=== PATIENT | male | born 1965 | race African-American/Black ===

== ENCOUNTER 2021-04-02 19:35 | Emergency (ER) | payer OTHER ==
[2021-04-02 19:39] VITALS: BP 114/73
--- NOTE | 2021-04-03 06:40 | Emergency Department Report ---
Blank Doc - Documentation Documentation: This is a 55-year-old male that presents with a syncopal episode that occurred last night. Patient has past medical history of cardiac. Physical exam: Exam does not show any stroke like symptoms. Neuro exam is unremarkable. 1- This is a initial triage assessment/medical screening only. Full assessment and work-up will be completed once the patient is in proper hospital gown, ED bed and in a private room setting. This initial assessment/diagnostic orders/clinical plan/ treatment(s) is/are subject to change based on pt's health status, clinical progression and re-assessment by fellow clinical providers in the ED. Further treatment and workup at subsequent clinical providers discretion. Patient/guardians urged not to elope from ED as their condition may be serious if not clinically assessed and managed. 2-cardiac work-up The patient was evaluated in the emergency department for symptoms described in the history of present illness. He/she was evaluated in the context of the global COVID-19 pandemic, which necessitated consideration that the patient might be at risk for infection with the virus that causes COVID-19. Institutional protocols and algorithms that pertain to the evaluation of patients at risk for COVID-19 are in a state of rapid change based on information released by regulatory bodies including the CDC and federal and state organizations. These policies and algorithms were followed during the patient's care in the emergency department. Please note that these policies, procedures and recommendations changed on a rapid basis.
--- NOTE | 2021-04-03 07:05 | XRay Report ---
CHEST 2 VIEWS INDICATION / CLINICAL INFORMATION: Chest Pain. COMPARISON: None available. FINDINGS: SUPPORT DEVICES: None. HEART / MEDIASTINUM: No significant abnormality. LUNGS / PLEURA: No significant pulmonary or pleural abnormality. No pneumothorax. ADDITIONAL FINDINGS: No significant additional findings. IMPRESSION: 1. No acute findings. Signer Name: Luis Alberto Vidales DO Signed: 04/03/2021 7:01 AM Workstation Name: [id number]
[2021-04-03 08:15] LABS: Basophils % (Auto) 0.8 % (0.0-1.8); Eosinophils # (Auto) 0.1 K/mm3 (0.0-0.4); Eosinophils % (Auto) 2.2 % (0.0-4.3); Hematocrit 44.8 % (35.5-45.6); Hemoglobin 14.3 gm/dl (11.8-15.2); Lymphocytes # (Auto) 1.8 K/mm3 (1.2-5.4); Lymphocytes % (Auto) 32.7 % (13.4-35.0); Mean Corpuscular HGB Conc 32 % (32-34); Mean Corpuscular Volume 83 fl (84-94); Monocytes # (Auto) 0.5 K/mm3 (0.0-0.8); Monocytes % (Auto) 9.1 % (0.0-7.3); Platelet Count 192 K/mm3 (140-440); Red Cell Distribution Width 17.8 % (13.2-15.2)
[2021-04-03 08:43] LABS: Alanine Aminotransferase 11 units/L (7-56); Albumin 4.3 g/dL (3.9-5); BUN/Creatinine Ratio 11; Blood Urea Nitrogen 26 mg/dL (9-20); Calcium 9.1 mg/dL (8.4-10.2); Hemolysis Index 6
[2021-04-03 08:45] LABS: INR 0.89 (0.87-1.13)
--- NOTE | 2021-04-03 08:58 | Emergency Department Report ---
ED Syncope HPI - General Chief Complaint: Syncope Stated Complaint: SYNCOPE, MED CLEARENCE FOR [place] Time Seen by Provider: 04/03/21 06:28 Source: patient Exam Limitations: no limitations - History of Present Illness Initial Comments: Chief complaint: "My blood pressure was low. I did not eat." HPI: Is a 55-year-old male with history of mitral valve repair, chronic kidney disease, hypertension who presents with syncopal episode. He was referred to [facility] for depression and suicidality. He was discharged on a voluntary basis. He takes Eliquis for mitral valve issue. Prior to being discharged from [facility] emergency department he received medication for elevated blood pressure. He drove his personal vehicle. When he arrived to [facility] his blood pressure had dropped to 70. He had brief syncopal episode. He also stated that he had not eaten food over the past day. He denies any symptoms at this time. He denies palpitations, chest pain, shortness of breath, leg pain. Denies headache. Mitral valve repair occurred in September 2017 Timing/Prior Episodes: single episode today Precipitating Factors: Positive: other (low blood pressure) Loss of Consciousness: brief (seconds) Current Symptoms: back to normal ED Review of Systems ROS: Stated complaint: SYNCOPE, MED CLEARENCE FOR [place] Other details as noted in HPI Comment: All other systems reviewed and negative Constitutional: denies: chills, fever, malaise Respiratory: denies: cough, shortness of breath Cardiovascular: denies: chest pain Gastrointestinal: denies: abdominal pain Skin: denies: rash, lesions Neurological: denies: headache, weakness ED Past Medical Hx - Past Medical History Previous Medical History?: Yes Hx Hypertension: Yes Hx Renal Disease: Yes Additional medical history: mitral valve disease - Surgical History Past Surgical History?: Yes Additional Surgical History: cardiac surgery mitral valve repair September 2017 - Family History Family history: no significant - Social History Smoking Status: Former Smoker Substance Use Type: None ED Physical Exam - General Limitations: No Limitations General appearance: alert, in no apparent distress - Head Head exam: Present: atraumatic, normocephalic - Eye Eye exam: Present: normal appearance - ENT ENT exam: Present: mucous membranes moist - Neck Neck exam: Present: normal inspection - Respiratory Respiratory exam: Present: normal lung sounds bilaterally. Absent: respiratory distress, wheezes, rales, rhonchi, stridor - Cardiovascular Cardiovascular Exam: Present: regular rate, normal rhythm, normal heart sounds. Absent: systolic murmur, diastolic murmur, rubs, gallop - GI/Abdominal GI/Abdominal exam: Present: soft, normal bowel sounds - Rectal Rectal exam: Present: deferred - Extremities Exam Extremities exam: Present: normal inspection - Back Exam Back exam: Present: normal inspection - Neurological Exam Neurological exam: Present: alert, oriented X3 - Psychiatric Psychiatric exam: Present: normal affect, depressed - Skin Skin exam: Present: warm, dry, intact, normal color. Absent: rash ED Course Vital Signs 04/02/21 19:39 Temperature 97.5 F L Pulse Rate 57 L Respiratory 18 Rate Blood Pressure 114/73 [Left] O2 Sat by Pulse 95 Oximetry ED Medical Decision Making - Lab Data Result diagrams: 04/03/21 07:28 04/03/21 07:28 Laboratory Results - last 24 hr 04/03/21 04/03/21 04/03/21 07:28 07:28 07:28 WBC 5.6 RBC 5.40 H Hgb 14.3 Hct 44.8 MCV 83 L MCH 26 L MCHC 32 RDW 17.8 H Plt Count 192 Lymph % (Auto) 32.7 [place] % (Auto) 9.1 H Eos % (Auto) 2.2 Baso % (Auto) 0.8 Lymph # (Auto) 1.8 [place] # (Auto) 0.5 Eos # (Auto) 0.1 Baso # (Auto) 0.0 Seg Neutrophils % 55.2 Seg Neutrophils # 3.1 PT 13.1 INR 0.89 APTT 33.0 Sodium 140 Potassium 4.5 Chloride 99.4 Carbon Dioxide 27 Anion Gap 18 BUN 26 H Creatinine 2.4 H Estimated GFR 28 BUN/Creatinine Ratio 11 Glucose 85 Calcium 9.1 Magnesium 2.30 Total Bilirubin 1.00 AST 15 ALT 11 Alkaline Phosphatase 125 Troponin T < 0.010 Total Protein 7.2 Albumin 4.3 Albumin/Globulin Ratio 1.5 - EKG Data -: EKG Interpreted by Me EKG shows normal: sinus rhythm Rate: normal - EKG Data 04/03/21 08:58 EKG obtained 848 EKG interpreted by me Rate 65 bpm normal sinus rhythm normal axis prolonged [place] interval normal QTC positive LVH nonspecific T wave pattern no significant ST elevation - Radiology Data Radiology results: report reviewed Patient Name: REJI LUNDBERG Gender: Male Date of : 1965 Referring Provider: BRYON PRIDE Organization: [facility] Accession Number: [id number] Requested Date: April 03, 2021 06:41 Report Status: Final Requested Procedure: 1 Procedure Description: XR chest routine 2V Modality: XR Findings Reporting MD: Luis Alberto Vidales Dictation Time: April 03, 2021 06:01 Alteration Manager: Not available Director Product Management Date: CHEST 2 VIEWS INDICATION / CLINICAL INFORMATION: Chest Pain. COMPARISON: None available. FINDINGS: SUPPORT DEVICES: None. HEART / MEDIASTINUM: No significant abnormality. LUNGS / PLEURA: No significant pulmonary or pleural abnormality. No pneumothorax. ADDITIONAL FINDINGS: No significant additional findings. IMPRESSION: 1. No acute findings. Signer Name: Luis Alberto Vidales DO Signed: 04/03/2021 6:01 AM Workstation Name: [id number] - Medical Decision Making Syncope due to hypotension, adverse effect of medication. I do not suspect pulmonary embolism or arrhythmia. Patient is compliant with Eliquis. Known history of structural heart disease which has been managed with surgery. He has been in the emergency department for 14 hours without recurrence of symptoms. Discharged to self-care. He plans to return to [place] for evaluation of depression. Critical care attestation.: If time is entered above; I have spent that time in minutes in the direct care of this critically ill patient, excluding procedure time. ED Disposition Clinical Impression: Syncope Disposition: HOME / SELF CARE / HOMELESS Is pt being admited?: No Does the pt Need Aspirin: No Condition: Stable Instructions: Syncope (ED), Syncope Referrals: JOSH GARCIA MD [Primary Care Provider] - 3-5 Days
--- NOTE | 2021-04-03 09:39 | Electrocardiograph Report ---
[facility] Test Date: 2021-04-03 Test Time: 08:48:22 Pat Name: REJI LUNDBERG Department: Room: Gender: M Accounts Adjustable Clerk: ELIJAH : 1965 Requested By: BRYON PRIDE Order Number: [id number] Reading MD: Arnel Isaacs Measurements Intervals [place] Rate: 66 P: 71 PA: 214 QRS: 37 QRSD: 106 T: -27 QT: 425 QTc: 444 Interpretive Statements Sinus rhythm Prolonged PA interval Probable left ventricular hypertrophy Nonspecific T abnormalities, lateral leads Anterior ST elevation, probably due to LVH No previous ECG available for comparison Electronically Signed On 04-03-2021 9:39:21 EST by Arnel Isaacs
== END 2021-04-03 10:06 | disposition home or self-care (01) ==
LOC: ED 19:35
DX: R55 Syncope and collapse (principal); Z87.891 Personal history of nicotine dependence; I10 Essential (primary) hypertension
CPT/HCPCS: 36415; 71046; 80053; 83735; 84484; 85025; 85610; 85730; 93005; 99284